=== PATIENT | female | born 1970 | race Caucasian/White ===

== ENCOUNTER 2017-01-13 16:09 | Emergency (ER) | payer OTHER ==
[2017-01-13 17:41] LABS: HEMOGLOBIN 14.9 gm/dl (12.3-15.3); RED BLOOD COUNT 4.73 M/UL (4.00-5.10); WHITE BLOOD COUNT 9.9 K/UL (4.5-11.0)
[2017-01-13 17:55] LABS: BUN/CREATININE RATIO 14 (0-10)
== END 2017-01-13 18:05 | disposition home or self-care (01) ==
LOC: ER1 16:09
PROVIDERS: Physician Assistant Medical
DX: I83.92 Asymptomatic varicose veins of left lower extremity (principal); M79.661 Pain in right lower leg; I10 Essential (primary) hypertension; F17.210 Nicotine dependence, cigarettes, uncomplicated; Z88.1 Allergy status to other antibiotic agents; Z88.2 Allergy status to sulfonamides; Z88.6 Allergy status to analgesic agent; Z79.82 Long term (current) use of aspirin; Z79.899 Other long term (current) drug therapy
CPT/HCPCS: 36415; 80053; 85025; 93970; 99284

== ENCOUNTER → 2017-03-07 | Outpatient (CLI) | payer OTHER | LOC: HEART 5 13:29 | DX: I83.90 Asymptomatic varicose veins of unspecified lower extremity (principal); R94.39 Abnormal result of other cardiovascular function study ==